=== PATIENT | female | born 1995 | race African-American/Black ===

== ENCOUNTER 2021-12-22 13:18 | Emergency (ER) | payer SELFPAY ==
[~2021-12-22 13:18] MED LIST: Iopamidol 300 61% 100 ML VIAL FS ONE
[2021-12-22 14:02] LABS: Bilirubin Neg (Negative); Blood, Urine 250 (Negative); Clarity Cloudy (Clear); Glucose, Urine (Dipstick) >=1000 mg/dL (Negative); Ketone, Urine 5 mg/dL (Negative); Leukocyte 25 (Negative); Nitrite Negative (Negative); Protein, Urine (Dipstick) 100 mg/dl (Neg-Trace); Urobilinogen Normal mg/dL (Less than 2); pH, Urine 6.5 (5.0-9.0)
[2021-12-22] MEDS ORDERED: Piperacillin/Tazobactam 4.5 GM VIAL ONE (14:05)
[2021-12-22] MEDS ORDERED: Ondansetron PF 4 MG/2 ML Vial ONE (14:05)
[2021-12-22] MEDS ORDERED: Morphine 4 MG/ML VIAL ONE (14:05)
[2021-12-22 14:21] LABS: Bacteria/HPF None Seen HPF (None Seen); RBC/HPF Greater than 50 HPF (0-3); WBC/HPF 0-3 HPF (0-3)
[2021-12-22 14:30] LABS: #Monocytes 0.5 10x3/uL (0.0-1.1); #Neutrophils 3.1 10x3/uL (1.5-8.4); %Basophils 0.4 % (0.0-2.0); %Eosinophils 0.8 % (0.0-6.0); %Lymphocytes 31.6 % (18.0-47.0); %Monocytes 8.5 % (0.0-10.0); %Neutrophils 58.5 % (40.0-75.0); Hemoglobin 13.3 g/dL (12.0-15.5); Mean Corpuscular HGB CONC 33.8 g/dL (32.0-36.0); Mean Corpuscular Hemoglobin 30.5 pg (27.0-33.0); Mean Corpuscular Volume 90.1 fl (81.6-98.3); Platelet Count 248 10x3/uL (150-450); RBC Distribution Width 12.5 % (11.5-14.5); Red Blood Cell (RBC) Count 4.36 10x6/uL (3.90-5.03); White Blood Cell (WBC) Count 5.3 10x3/uL (3.5-10.5)
[2021-12-22 14:39] LABS: Pregnancy Test - Urine (BHCG) Negative (Negative); Pregu Control Background? CLEAR/WHITE (CLR/WHITE); Pregu Control Bar Appear? YES (CONTROL BAR)
[2021-12-22 14:39] LABS: ALT (SGPT) 14 U/L (8-55); AST (SGOT) 11 U/L (5-34); Albumin 4.2 g/dL (3.5-5.0); Alkaline Phosphatase 60 U/L (40-110); Anion Gap 15 mmol/L (10-20); BUN (Urea Nitrogen) 9 mg/dL (7.0-18.7); Bilirubin, Total 0.2 mg/dL (0.2-1.2); CK (CPK) 74 U/L (29-168); Calc. Creatinine Clearance 0 mL/min (70-130); Calcium 9.6 mg/dL (7.8-10.44); Carbon Dioxide 24 mmol/L (22-29); Chloride 99 mmol/L (98-107); Estimated GFR 106; Glucose 403 mg/dL (70-105); Lipase 28 U/L (8-78); Magnesium 1.8 mg/dL (1.6-2.6); Protein, Total 7.2 g/dL (6.0-8.3); Sodium 134 mmol/L (136-145)
[2021-12-22] MEDS ORDERED: Mag-Al Plus 1200 MG/1200 MG/120 MG/30 ML UDCUP ONE (15:29)
[2021-12-22] MEDS ORDERED: Pantoprazole 40 MG VIAL ONE (15:29)
[2021-12-22] MEDS ORDERED: Dicyclomine 20 MG/2 ML VIAL ONE (15:29)
[2021-12-22] MEDS ORDERED: Lidocaine Viscous Sol 2% 15 ml UD Cup ONE (15:29)
== END 2021-12-22 16:19 | disposition home or self-care (01) ==
LOC: CSHERS 13:18
DX: R10.13 Epigastric pain (principal); E11.9 Type 2 diabetes mellitus without complications; J45.909 Unspecified asthma, uncomplicated
CPT/HCPCS: 36415; 74177; 80053; 81003; 81015; 81025; 82550; 83605; 83690; 83735; 84443; 85025; 87040; 87086; 93005; 96365; 96372; 96375; C9113; J0500; J2270; J2405; J2543; Q9967

== ENCOUNTER 2022-06-18 19:43 | Emergency (ER) | payer SELFPAY ==
[2022-06-18 20:25] LABS: Bilirubin Neg (Negative); Blood, Urine 10 (Negative); Clarity Slightly Cloudy (Clear); Glucose, Urine (Dipstick) Normal (Negative); Ketone, Urine Negative (Negative); Leukocyte 25 (Negative); Nitrite Negative (Negative); Protein, Urine (Dipstick) 15 mg/dl (Neg-Trace); pH, Urine 6.5 (5.0-9.0)
[2022-06-18 20:44] LABS: RBC/HPF 0-3 HPF (0-3); WBC/HPF 0-3 HPF (0-3)
[2022-06-18 20:45] LABS: Bacteria/HPF 1+ HPF (None Seen)
[2022-06-18 20:47] LABS: Hemoglobin 11.8 g/dL (12.0-15.5); Mean Corpuscular HGB CONC 33.6 g/dL (32.0-36.0); Mean Corpuscular Hemoglobin 30.5 pg (27.0-33.0); Mean Corpuscular Volume 90.7 fl (81.6-98.3); Mean Platelet Volume 11.9 fl (7.4-10.4); Platelet Count 238 10x3/uL (150-450); RBC Distribution Width 12.5 % (11.5-14.5); Red Blood Cell (RBC) Count 3.87 10x6/uL (3.90-5.03); White Blood Cell (WBC) Count 6.4 10x3/uL (3.5-10.5)
[2022-06-18 21:04] LABS: MDiff Complete? YES
[2022-06-18 21:07] LABS: Band 2 % (5-11); Eosinophils 1 % (0-10); Lymphocytes 52 % (21-51); Monocytes 12 % (0-10); Neutrophil 27 % (42-75); Reactive Lymphocytes 6 % (0-10)
[2022-06-18 21:08] LABS: Platelet Morphology Comment Appears Adequate; RBC Morphology Normal
[2022-06-18 21:11] LABS: ALT (SGPT) 10 U/L (8-55); AST (SGOT) 10 U/L (5-34); Albumin 3.8 g/dL (3.5-5.0); Alkaline Phosphatase 47 U/L (40-110); Anion Gap 13 mmol/L (10-20); BUN (Urea Nitrogen) 13 mg/dL (7.0-18.7); Bilirubin, Total 0.2 mg/dL (0.2-1.2); Calc. Creatinine Clearance 0 mL/min (70-130); Calcium 9.3 mg/dL (7.8-10.44); Carbon Dioxide 24 mmol/L (22-29); Chloride 106 mmol/L (98-107); Estimated GFR 85; Globulin 2.5 g/dL (2.4-3.5); Glucose 208 mg/dL (70-105); Potassium 3.8 mmol/L (3.5-5.1); Protein, Total 6.3 g/dL (6.0-8.3); Sodium 139 mmol/L (136-145)
[2022-06-18 22:03] LABS: Pregnancy Test - Urine (BHCG) Negative (Negative); Pregu Control Background? CLEAR/WHITE (CLR/WHITE); Pregu Control Bar Appear? YES (CONTROL BAR)
[2022-06-18] MEDS ORDERED: Acetaminophen 500 MG TAB ONE (22:45)
== END 2022-06-18 23:53 | disposition home or self-care (01) ==
LOC: CSHERS 19:43
DX: R10.30 Lower abdominal pain, unspecified (principal); E11.9 Type 2 diabetes mellitus without complications
CPT/HCPCS: 36415; 74176; 80053; 81003; 81015; 81025; 85025; 87086

== ENCOUNTER 2022-10-01 20:02 | Emergency (ER) | payer SELFPAY | END 2022-10-01 21:25 | disposition home or self-care (01) | LOC: CSHERS 20:02 | DX: M54.9 Dorsalgia, unspecified (principal); E11.9 Type 2 diabetes mellitus without complications | CPT/HCPCS: 99283 ==

== ENCOUNTER 2023-02-01 21:59 | Emergency (ER) | payer BC, SELFPAY | END 2023-02-02 00:58 | disposition home or self-care (01) | LOC: CSHERS 21:59 | DX: M25.562 Pain in left knee (principal); E11.9 Type 2 diabetes mellitus without complications ==

== ENCOUNTER 2025-03-09 08:07 | Emergency (ER) | payer BC, SELFPAY ==
[2025-03-09] MEDS ORDERED: Ondansetron PF 4 MG/2 ML Vial ONE (08:55)
[2025-03-09] MEDS ORDERED: Pantoprazole 40 MG VIAL ONE (08:55)
[2025-03-09 09:13] LABS: Glucose, Urine (Dipstick) >=1000 mg/dL (Negative); Leukocyte 500 (Negative); Protein, Urine (Dipstick) 30 mg/dl (Neg-Trace); Specific Gravity, Urine 1.020 (1.005-1.030)
[2025-03-09 09:21] LABS: #Basophils Less than 0.03 10x3/uL (0.0-0.2); #Eosinophils 0.07 10x3/uL (0.0-0.5); #Monocytes 0.47 10x3/uL (0.0-1.1); #Neutrophils 3.14 10x3/uL (1.5-8.4); %Basophils 0.4 % (0.0-2.0); %Eosinophils 1.2 % (0.0-6.0); %Lymphocytes 33.9 % (18.0-47.0); %Monocytes 8.4 % (0.0-10.0); %Neutrophils 55.9 % (40.0-75.0); Hematocrit 35.2 % (34.9-44.5); Hemoglobin 11.8 g/dL (12.0-15.5); Mean Corpuscular Hemoglobin 29.9 pg (27.0-33.0); Mean Corpuscular Volume 89.1 fL (81.6-98.3); Platelet Count 259 10x3/uL (150-450); Red Blood Cell (RBC) Count 3.95 10x6/uL (3.90-5.03); White Blood Cell (WBC) Count 5.61 10x3/uL (3.5-10.5)
[2025-03-09 09:22] LABS: Bacteria/HPF 1+ HPF (None Seen); CAUTI Indications for Culture Dysuria,urgency,freq; Trichomonas/HPF 2+ HPF (None Seen); WBC/HPF 21-50 HPF (0-3)
[2025-03-09 09:24] LABS: Urine Culture Reflex Yes Yes
[2025-03-09 09:26] LABS: BHCG - Serum Negative (NEGATIVE); Pregs Control Background? CLEAR/WHITE (CLR/WHITE); Pregs Control Bar Appear? YES (CONTROL BAR)
[2025-03-09 09:32] LABS: ALT (SGPT) 10 U/L (Less than 34); AST (SGOT) 23 U/L (11-34); Albumin 3.9 g/dL (3.1-4.5); Alkaline Phosphatase 53 U/L (40-110); Anion Gap 13 mmol/L (10-20); BUN (Urea Nitrogen) 9 mg/dL (7.0-18.7); Bilirubin, Total 0.2 mg/dL (0.3-1.2); Calc. Creatinine Clearance 0 mL/min (70-130); Calcium 9.1 mg/dL (7.8-10.44); Carbon Dioxide 25 mmol/L (22-29); Chloride 102 mmol/L (98-107); Globulin 3.1 g/dL (2.4-3.5); Glucose 363 mg/dL (70-105); Lipase 25 U/L (8-78); Potassium 4.3 mmol/L (3.5-5.1); Sodium 136 mmol/L (136-145)
[2025-03-09] MEDS ORDERED: Iopamidol 300 61% 100 ML VIAL FS ONE (10:22)
== END 2025-03-09 11:40 | disposition home or self-care (01) ==
LOC: CSHERS 08:07
DX: N39.0 Urinary tract infection, site not specified (principal); N83.292 Other ovarian cyst, left side; E11.9 Type 2 diabetes mellitus without complications; Z79.4 Long term (current) use of insulin; Z79.84 Long term (current) use of oral hypoglycemic drugs
CPT/HCPCS: 74177; 80053; 81001; 83605; 83690; 84703; 85025; 86850; 86900; 86901; 87086; 96374; 96375; J2405; J2470; J3010